=== PATIENT | female | born 1975 | race African-American/Black ===

== ENCOUNTER 2022-03-07 18:45 | Emergency (ER) | payer MEDICAID ==
[~2022-03-07] VITALS: Ht 157.5 cm; Wt 60.0 kg
[2022-03-08 05:28] LABS: HEMATOCRIT 27.5 % (36.0-48.0); HEMOGLOBIN 8.1 g/dL (12.0-16.0); MEAN CORPUSCULAR HEMOGLOBIN 18.7 pg (28.0-32.0); MEAN CORPUSCULAR VOLUME 63.9 fL (81.0-99.0); PLATELET 350 x1000/uL (130-400); RED CELL DISTRIBUTION WIDTH 22.4 % (11.6-14.6)
[2022-03-08 05:38] LABS: CHLORIDE 111 mEq/L (98-107)
[2022-03-08 06:00] VITALS: BP 121/61
== END 2022-03-08 06:21 | disposition home or self-care (01) ==
LOC: ER 20:04
DX: D64.9 Anemia, unspecified (principal); R03.0 Elevated blood-pressure reading, without diagnosis of hypertension
CPT/HCPCS: 36415; 80053; 81025; 85027; 86850; 86900; 99283

== ENCOUNTER 2025-06-20 16:14 | Emergency (ER) | payer MEDICAID ==
[~2025-06-20] VITALS: Ht 152.4 cm; Wt 50.0 kg
[2025-06-20 16:19] VITALS: O2SAT 100
[2025-06-20] MEDS: SODIUM CHLORIDE 0.9% 1,000 ML IV ONE (17:16)
[2025-06-20 18:01] VITALS: BP 119/76; PULSE 71; RESP 16; TEMP 36.9; O2SAT 100
== END 2025-06-20 18:04 | disposition home or self-care (01) ==
LOC: ER 16:14 → EDBEDREQ 17:12 → CANBEDREQ 17:53 → ER 18:04
DX: R09.89 Other specified symptoms and signs involving the circulatory and respiratory systems (principal); R07.9 Chest pain, unspecified
CPT/HCPCS: 71045; 93005; 99283; J7030